=== PATIENT | male | born 1940 | race Two or more races ===

== ENCOUNTER 2022-05-31 08:00 | Day surgery (SDC) | payer OTHER ==
[~2022-05-31] VITALS: Ht 152.4 cm; Wt 59.9 kg
[~2022-05-31 08:00] MED LIST: COZAAR100 MG; COZAAR50 MG PO; JANUVIA100 MG PO; PEPCI PO; PROTONIX PO; SIMVASTA PO; XALATAN; [UNRECOGNIZED DRUG - OTHER]
[2022-05-31] MEDS ORDERED: ULTRACET PO (13:28)
[2022-05-31] MEDS ORDERED: RECTICARE30 GM TOP (13:28)
== END 2022-05-31 15:25 | disposition home or self-care (01) ==
LOC: CIR.AMB 08:00
PROVIDERS: ATTEND Surgery
DX: C20 Malignant neoplasm of rectum (principal); I10 Essential (primary) hypertension; Z95.0 Presence of cardiac pacemaker; E11.8 Type 2 diabetes mellitus with unspecified complications; Z91.041 Radiographic dye allergy status

== ENCOUNTER 2022-07-05 08:00 | Day surgery (SDC) | payer OTHER ==
[~2022-07-05 08:00] MED LIST changes: +RECTICARE30 GM TOP; +ULTRACET PO
[2022-07-05] MEDS ORDERED: TRAM1TAB98 PO (14:02)
== END 2022-07-05 16:55 | disposition home or self-care (01) ==
LOC: CIR.AMB 08:00
PROVIDERS: ATTEND Surgery
DX: C19 Malignant neoplasm of rectosigmoid junction (principal); Z91.041 Radiographic dye allergy status; I10 Essential (primary) hypertension; Z95.0 Presence of cardiac pacemaker; E11.9 Type 2 diabetes mellitus without complications; D64.89 Other specified anemias; Z79.84 Long term (current) use of oral hypoglycemic drugs
CPT/HCPCS: 36561; C1788

== ENCOUNTER 2023-08-22 05:10 | Day surgery (SDC) | payer OTHER ==
[~2023-08-22] VITALS: Ht 165.1 cm; Wt 59.9 kg
[~2023-08-22 05:10] MED LIST changes: +TRAM1TAB98 PO
[2023-08-22] MEDS ORDERED: CEFAZOLIN SODIUM 1,000 MG VIAL ONE (06:23)
[2023-08-22] MEDS ORDERED: BUPIVACAINE HCL/PF 0.5% 30ML ML ONE (07:16)
[2023-08-22] MEDS ORDERED: LIDOCAINE HCL 1%/Epi 20ML VIAL IJ ONE ×2 (07:16→08:00)
[2023-08-22] MEDS ORDERED: BUPIVACAINE HCL/PF 0.5% 30ML ML IJ ONE (07:45)
[2023-08-22] MEDS ORDERED: CEFAZOLIN SODIUM 1,000 MG in 0.9 % SODIUM CHLORIDE 50 ML IV ONE (07:45)
[2023-08-22] MEDS ORDERED: TRAM1TAB98 PO (08:15)
== END 2023-08-22 10:45 | disposition home or self-care (01) ==
LOC: CIR.AMB 05:10
PROVIDERS: ATTEND Surgery
DX: C20 Malignant neoplasm of rectum (principal); Z91.041 Radiographic dye allergy status; E11.9 Type 2 diabetes mellitus without complications; E78.5 Hyperlipidemia, unspecified

== ENCOUNTER 2024-02-28 11:00 | Inpatient (IN) | payer OTHER ==
[~2024-02-28] VITALS: Ht 167.6 cm; Wt 60.3 kg
[2024-02-28] MEDS ORDERED: XARELTO20 MG (13:12)
[2024-03-05] MEDS ORDERED: 0.9 % SODIUM CHLORIDE 1,000 ML IV SCH (15:45)
[2024-03-05] MEDS ORDERED: DEXTROSE 50 % IN WATER 0.5 G/ML DISP.SYRIN IV PRN (15:45)
[2024-03-05] MEDS ORDERED: MORPHINE SULFATE 4 MG/ML CARTRIDGE IV PRN (15:45)
[2024-03-05] MEDS ORDERED: ONDANSETRON HCL 2 MG/ML VIAL IV PRN (15:45)
[2024-03-05] MEDS ORDERED: OxyCODONE HCL 5 MG TABLET (ROXICODONE) PO PRN (15:45)
[2024-03-05] MEDS ORDERED: POVIDONE-IODINE 118 ML BOTT TOP SCH (16:15)
[2024-03-05] MEDS ORDERED: BUPIVACAINE HCL 30 ML VIAL IJ SCH (16:15)
[2024-03-05] MEDS ORDERED: CEFTRIAXONE SODIUM 2,000 MG VIAL IV SCH (16:15)
[2024-03-05] MEDS ORDERED: METRONIDAZOLE/SODIUM CHLORIDE 500 MG/100 ML PIGGYBACK IV SCH ×2 (16:15→17:00)
[2024-03-05] MEDS ORDERED: LIDOCAINE HCL 1%/EPINEPHRINE 20ML VIAL IJ SCH (16:15)
[2024-03-05] MEDS ORDERED: GABAPENTIN 300 MG CAPSULE PO SCH (17:00)
[2024-03-05] MEDS ORDERED: HYOSCYAMINE SULFATE 0.125 MG TAB.SUBL SL SCH (17:00)
[2024-03-05] MEDS ORDERED: POLYETHYLENE GLYCOL 3350 17 GM BLIST.PACK PO SCH (17:00)
[2024-03-05] MEDS ORDERED: ACETAMINOPHEN 500 MG GEL..CAP PO SCH (20:00)
[2024-03-05] MEDS ORDERED: MORPHINE SULFATE 4 MG/ML VIAL IV ONE ×2 (20:15→20:45)
[2024-03-05] MEDS ORDERED: FAMOTIDINE/PF 20 MG/2 ML VIAL IV PUSH SCH (21:00)
[2024-03-05] MEDS ORDERED: MORPHINE SULFATE 2 MG/ML CARTRIDGE IV ONE (22:45)
[2024-03-05 23:36] LABS: HEMATOCRIT 34.3 % (39.0-48.0); HEMOGLOBIN 11.5 g/dL (13-16.00); MEAN CORPUSCULAR HGB CONC 33.4 g/dl (32.0-36.0); RED BLOOD COUNT 3.95 M/uL (4.00-6.00); RED CELL DISTRIBUTION WIDTH 14.6 % (11.5-14.5)
[2024-03-05 23:37] LABS: PLATELET COUNT 120 K/uL (150-450)
[2024-03-05 23:47] LABS: ALBUMIN 3.6 gm/dL (3.4-5.0); CALCIUM 8.8 mg/dL (8.5-10.1); CREATININE SERUM 0.99 mg/dL (0.70-1.30); GFR 72.19; MAGNESIUM 1.5 mg/dL (1.8-2.4); PHOSPHOROUS 2.6 mg/dL (2.5-4.9); POTASSIUM 4.58 mEq/L (3.5-5.1)
[2024-03-06 04:27] VITALS: BP 118/64; O2SAT 98
[2024-03-06 07:30] VITALS: BP 156/86; O2SAT 97
[2024-03-06 07:49] LABS: HEMATOCRIT 30.2 % (39.0-48.0); HEMOGLOBIN 10.2 g/dL (13-16.00); MEAN CELL VOLUME 86.2 fL (80.0-100.00); MEAN CORPUSCULAR HEMOGLOBIN 29.2 pg (27.00-32.0); MEAN CORPUSCULAR HGB CONC 33.9 g/dl (32.0-36.0); RED CELL DISTRIBUTION WIDTH 14.4 % (11.5-14.5)
[2024-03-06 07:50] LABS: PLATELET COUNT 108 K/uL (150-450)
[2024-03-06 08:38] LABS: ALBUMIN 3.1 gm/dL (3.4-5.0); CALCIUM 8.8 mg/dL (8.5-10.1); CREATININE SERUM 1.02 mg/dL (0.70-1.30); GFR 69.75; MAGNESIUM 1.6 mg/dL (1.8-2.4); PHOSPHOROUS 2.8 mg/dL (2.5-4.9); POTASSIUM 5.03 mEq/L (3.5-5.1)
[2024-03-06 12:00] VITALS: BP 140/67; O2SAT 98
[2024-03-06] MEDS ORDERED: INSULIN LISPRO 1,000 UNIT/10 ML UNITS SUBCUTANEO PRN (12:45)
[2024-03-06] MEDS ORDERED: DEXTROSE 50 % IN WATER 0.5 G/ML DISP.SYRIN IV PRN (12:45)
[2024-03-06 16:00] VITALS: BP 137/61; O2SAT 97
[2024-03-06] MEDS ORDERED: MAGNESIUM SULFATE IN WATER 50 ML IV NR (16:00)
[2024-03-06] MEDS ORDERED: Cyanocobalamin/Mecobalamin 1 TAB.SL SL SCH (17:00)
[2024-03-06] MEDS ORDERED: ENOXAPARIN SODIUM 40 MG/0.4 ML SYRINGE SUBCUTANEO SCH (17:00)
[2024-03-06] MEDS ORDERED: TAMSULOSIN HCL 0.4 MG CAP PO STA (17:03)
[2024-03-07] VITALS: BP 143/65; O2SAT 94
[2024-03-07] MEDS ORDERED: LOSARTAN POTASSIUM 50 MG TABLET PO SCH (09:00)
[2024-03-07] MEDS ORDERED: SOD FERRIC GLUC COMPLX/SUCROSE 62.5 MG in 0.9 % SODIUM CHLORIDE 50 ML IV SCH (09:00)
[2024-03-07] MEDS ORDERED: ENOXAPARIN SODIUM 40 MG/0.4 ML SYRINGE SUBCUTANEO SCH (09:00)
[2024-03-07] MEDS ORDERED: TAMSULOSIN HCL 0.4 MG CAP PO STA (09:27)
[2024-03-07 09:51] VITALS: BP 158/72; O2SAT 100
[2024-03-07 16:00] VITALS: BP 127/61; O2SAT 98
[2024-03-07] MEDS ORDERED: TAMSULOSIN HCL 0.4 MG CAP PO SCH (21:00)
[2024-03-08 00:55] VITALS: BP 139/64; O2SAT 96
[2024-03-08 08:49] VITALS: BP 130/59; O2SAT 97
[2024-03-08] MEDS ORDERED: TAMSULOSIN HCL 0.4 MG CAP PO SCH (09:00)
[2024-03-08 10:08] LABS: HEMATOCRIT 32.1 % (39.0-48.0); HEMOGLOBIN 10.5 g/dL (13-16.00); MEAN CELL VOLUME 87.2 fL (80.0-100.00); MEAN CORPUSCULAR HEMOGLOBIN 28.5 pg (27.00-32.0); MEAN CORPUSCULAR HGB CONC 32.7 g/dl (32.0-36.0); RED BLOOD COUNT 3.68 M/uL (4.00-6.00); RED CELL DISTRIBUTION WIDTH 14.5 % (11.5-14.5)
[2024-03-08 10:09] LABS: PLATELET COUNT 107 K/uL (150-450)
[2024-03-08] MEDS ORDERED: TAMS0.4C PO (11:07)
[2024-03-08] MEDS ORDERED: HYOSCYAMINE0.125 M1 SL (11:07)
[2024-03-08] MEDS ORDERED: PEPCID AC20 MG PO (11:08)
[2024-03-08] MEDS ORDERED: TRAM1TAB98 PO (11:08)
== END 2024-03-08 12:24 | disposition home or self-care (01) | DRG 331 ==
LOC: O/R 03-05 06:38 → SURH 03-05 09:00 → SURG 03-05 22:45
PROVIDERS: Internal Medicine; ADMIT Surgery; ATTEND Surgery
PROC: 0DTP4ZZ Resection of Rectum, Percutaneous Endoscopic Approach (ICD-10-PCS; 2024-03-05)
PROC: 0DTQ4ZZ Resection of Anus, Percutaneous Endoscopic Approach (ICD-10-PCS; 2024-03-05)
PROC: 07BC4ZZ Excision of Pelvis Lymphatic, Percutaneous Endoscopic Approach (ICD-10-PCS; 2024-03-05)
PROC: 0D1E4Z4 Bypass Large Intestine to Cutaneous, Percutaneous Endoscopic Approach (ICD-10-PCS; 2024-03-05)
PROC: 0DTN4ZZ Resection of Sigmoid Colon, Percutaneous Endoscopic Approach (ICD-10-PCS; principal; 2024-03-05 09:00)
DX: C20 Malignant neoplasm of rectum (principal); K64.2 Third degree hemorrhoids; R59.0 Localized enlarged lymph nodes

== ENCOUNTER 2024-12-08 08:56 | Inpatient (IN) | payer OTHER ==
[~2024-12-08] VITALS: Ht 165.1 cm; Wt 55.3 kg
[~2024-12-08 08:56] MED LIST changes: +HYOSCYAMINE0.125 M1 SL; +PEPCID AC20 MG PO; +TAMS0.4C PO; +XARELTO20 MG
--- NOTE | 2024-12-08 09:19 | NUR ---
SE REICBE PTE EN AMBULANCIA POR DOLOR ABDOMINAL Y VOMITOS . PTE CON COLOCTOMIA Y MARACAPASO. SE LE CHERRIE S/VC Y SE LE REALIZA DXT. SE ACOMODA EN PATSY CON BARABDAS ELEVADA.
[2024-12-08] MEDS ORDERED: ONDANSETRON HCL 2 MG/ML VIAL IV ONE (09:45)
--- NOTE | 2024-12-08 10:25 | NUR ---
SE ORIENTA A PTE SOBRE TX MEDICO EL MISMO INDICA ENTENDER Y ACEPTAR, SE ABBY MUESTRAS DE LAB MAS SE ADMINISTRAN MEDICAMENTOS WOODY ORDEN MEDICA BAJO MEDIDAS ASEPTICAS.
[2024-12-08 10:28] LABS: BASO % 0.2 % (0.1-1.2); EOS # 0.00 (0.04-0.54); EOS % 0.0 % (0.7-7.0); LYMPH # 0.27 (1.18-3.74); LYMPH % 2.9 % (19.3-53.1); MEAN PLATELET VOLUME 9.30 fl (9.4-12.4); MONO # 0.87 (0.24-0.82); MONO % 9.2 % (4.7-12.5); NEUT # 8.16 (1.56-6.13); NEUT % 86.6 % (34.0-71.1); RED CELL DISTRIBUTION WIDTH 14.2 % (11.6-14.4)
[2024-12-08 10:56] LABS: ALT/SGPT 27.0 U/L (12-78); AST/SGOT 29.0 U/L (15-37); BILIRUBIN TOTAL 0.63 mg/dL (0.3-1.2); BUN CREA RATIO 14.0 (7.0-25.0); CREATININE SERUM 1.18 mg/dL (0.70-1.30); GFR 58.81; GLOBULINA 4.1 G/DL (2.4-3.5); GLUCOSE FASTING 150.0 mg/dL (65-100); OSMOLALITY SERUM 244.0 MOSM/KG (275-295)
[2024-12-08 11:06] LABS: COVID-19 AG NEGATIVE (NEGATIVE)
[2024-12-08 11:53] LABS: URINE APPEARANCE Cloudy; URINE BILIRRUBIN Negative (NEGATIVE); URINE BLOOD Large; URINE COLOR Yellow; URINE GLUCOSE Negative (NEGATIVE); URINE KETONE Negative (NEGATIVE); URINE LEUKOCYTE Large; URINE NITRATE Negative; URINE PROTEIN 30 (NEGATIVE); URINE UROBILINOGEN 0.2 E.U./dl
[2024-12-08 11:58] LABS: URINE CAST 1.76 uL (0.0-1.40); URINE RBC 46.5 uL (0.0-20.8); URINE WBC 1141.8 uL (0.0-23.2)
[2024-12-08 12:01] LABS: URINE BACTERIA > 9821.5 uL (0.0-1933); URINE EPITHELIAL CELLS 0.9 uL (0.0-38.8)
[2024-12-08] MEDS ORDERED: 0.9 % SODIUM CHLORIDE 1,000 ML IV SCH (14:15)
[2024-12-08] MEDS ORDERED: CEFTRIAXONE SODIUM 1,000 MG VIAL IV ONE (14:30)
[2024-12-08] MEDS ORDERED: ONDANSETRON HCL 4 MG in 0.9 % SODIUM CHLORIDE 50 ML IV PRN (16:00)
[2024-12-08] MEDS ORDERED: DEXTROSE 50 % IN WATER 0.5 G/ML DISP.SYRIN IV PRN (16:00)
[2024-12-08] MEDS ORDERED: INSULIN LISPRO 1,000 UNIT/10 ML UNITS SUBCUTANEO PRN (16:00)
--- NOTE | 2024-12-08 16:44 | NUR ---
SE COLOCA TUBO NASOGASTRICO WOODY ORDEN MEDICA.
[2024-12-08 16:48] VITALS: BP 135/80
[2024-12-08 18:21] VITALS: BP 121/69; O2SAT 99
[2024-12-08] MEDS ORDERED: ACETAMINOPHEN 325 MG TABLET PO PRN (20:00)
[2024-12-08] MEDS ORDERED: MORPHINE SULFATE 4 MG/ML CARTRIDGE IV PRN (20:00)
[2024-12-08] MEDS ORDERED: TEMAZEPAM 15 MG CAPSULE PO SCH (21:00)
[2024-12-09] MEDS ORDERED: PIPERACILLIN/TAZOBACTAM SODIUM 3.375 GM in 0.9 % SODIUM CHLORIDE 100 ML IV SCH
[2024-12-09 00:53] VITALS: BP 134/76; O2SAT 98
[2024-12-09 08:17] VITALS: BP 130/72; O2SAT 97
[2024-12-09 08:26] LABS: INR 1.14
[2024-12-09] MEDS ORDERED: FOLIC ACID 1 MG TABLET PO SCH (09:00)
[2024-12-09] MEDS ORDERED: LOSARTAN POTASSIUM 100 MG TABLET PO SCH (09:00)
[2024-12-09] MEDS ORDERED: RIVAROXABAN 20 MG TABLET PO SCH (09:00)
[2024-12-09] MEDS ORDERED: TAMSULOSIN HCL 0.4 MG CAP PO SCH (09:00)
[2024-12-09] MEDS ORDERED: METOPROLOL TARTRATE 5MG/5ML AMPUL IV NR (10:00)
[2024-12-09] MEDS ORDERED: PANTOPRAZOLE SODIUM 40 MG/VIAL VIAL IV SCH (12:00)
[2024-12-09 17:00] VITALS: BP 141/53; O2SAT 97
[2024-12-09] MEDS ORDERED: SIMVASTATIN 20 MG TABLET PO SCH (17:00)
[2024-12-10 00:45] VITALS: BP 147/71; O2SAT 96
[2024-12-10] MEDS ORDERED: MEROPENEM 500 MG/VIAL VIAL IV SCH (09:00)
[2024-12-10 09:08] VITALS: BP 138/56; O2SAT 99
[2024-12-10 10:09] LABS: BASO % 0.3 % (0.1-1.2); EOS # 0.02 (0.04-0.54); EOS % 0.2 % (0.7-7.0); LYMPH # 0.43 (1.18-3.74); LYMPH % 4.2 % (19.3-53.1); MEAN PLATELET VOLUME 9.10 fl (9.4-12.4); MONO # 1.07 (0.24-0.82); MONO % 10.5 % (4.7-12.5); NEUT # 8.47 (1.56-6.13); NEUT % 83.2 % (34.0-71.1); RED CELL DISTRIBUTION WIDTH 15.8 % (11.6-14.4)
[2024-12-10 16:00] VITALS: BP 144/61; O2SAT 96
[2024-12-11 01:40] VITALS: BP 151/67; O2SAT 98
[2024-12-11 08:00] VITALS: BP 149/78; O2SAT 98
[2024-12-11 17:14] VITALS: BP 132/67; O2SAT 99
[2024-12-12 01:20] VITALS: BP 144/67; O2SAT 97
[2024-12-12 08:00] VITALS: BP 145/80; O2SAT 97
[2024-12-12] MEDS ORDERED: RIVAROXABAN 15 MG TABLET PO SCH (09:00)
[2024-12-12 09:22] LABS: ALT/SGPT 22.0 U/L (12-78); AST/SGOT 18.0 U/L (15-37); BILIRUBIN TOTAL 0.3 mg/dL (0.3-1.2); BUN CREA RATIO 10.0 (7.0-25.0); CREATININE SERUM 0.67 mg/dL (0.70-1.30); GFR 113.01; GLOBULINA 3.2 G/DL (2.4-3.5); GLUCOSE FASTING 102.0 mg/dL (65-100); OSMOLALITY SERUM 279.0 MOSM/KG (275-295)
[2024-12-12 16:00] VITALS: BP 147/66; O2SAT 98
[2024-12-12] MEDS ORDERED: CLONAZEPAM 0.5 MG TABLET PO SCH (21:00)
[2024-12-13 01:34] VITALS: BP 129/65; O2SAT 99
[2024-12-13 01:36] LABS: URINE APPEARANCE Clear; URINE BILIRRUBIN Negative (NEGATIVE); URINE BLOOD Large; URINE COLOR Orange; URINE KETONE Negative (NEGATIVE); URINE LEUKOCYTE Moderate; URINE NITRATE Negative; URINE UROBILINOGEN 0.2 E.U./dl
[2024-12-13 01:39] LABS: URINE BACTERIA 148.7 uL (0.0-1933); URINE EPITHELIAL CELLS 2.6 uL (0.0-38.8); URINE RBC 5885.4 uL (0.0-20.8); URINE WBC 63.2 uL (0.0-23.2)
[2024-12-13 01:49] LABS: URINE CAST 0.29 uL (0.0-1.40); URINE GLUCOSE 100 MG/DL (NEGATIVE); URINE PROTEIN 100 (NEGATIVE)
[2024-12-13 08:43] VITALS: BP 137/83; O2SAT 96
[2024-12-13] MEDS ORDERED: PANTOPRAZOLE SODIUM 40 MG TABLET.DR PO SCH (09:00)
[2024-12-13 16:00] VITALS: BP 129/72; O2SAT 97
[2024-12-14 00:52] VITALS: BP 146/68; O2SAT 98
[2024-12-14] MEDS ORDERED: INSULIN NPH HUM/REG INSULIN HM 1,000 UNIT/10 ML UNITS SUBCUTANEO SCH (08:00)
[2024-12-14 08:36] VITALS: BP 117/62; O2SAT 98
[2024-12-14 17:53] VITALS: BP 114/78; O2SAT 99
[2024-12-15 02:02] VITALS: BP 97/62; O2SAT 98
[2024-12-15 08:10] LABS: BASO % 0.3 % (0.1-1.2); EOS # 0.10 (0.04-0.54); EOS % 1.7 % (0.7-7.0); LYMPH # 0.82 (1.18-3.74); LYMPH % 14.2 % (19.3-53.1); MEAN PLATELET VOLUME 9.20 fl (9.4-12.4); MONO # 0.40 (0.24-0.82); MONO % 6.9 % (4.7-12.5); NEUT # 4.40 (1.56-6.13); NEUT % 76.0 % (34.0-71.1); RED CELL DISTRIBUTION WIDTH 16.4 % (11.6-14.4)
[2024-12-15 08:21] LABS: BUN CREA RATIO 16.0 (7.0-25.0); CREATININE SERUM 0.82 mg/dL (0.70-1.30); GFR 89.51; GLUCOSE FASTING 105.0 mg/dL (65-100); OSMOLALITY SERUM 280.0 MOSM/KG (275-295)
[2024-12-15 08:26] VITALS: BP 109/66; O2SAT 98
[2024-12-15] MEDS ORDERED: POTASSIUM CHLORIDE 10 MEQ CAPSULE PO NR (10:00)
[2024-12-15 16:00] VITALS: BP 104/66; O2SAT 100
[2024-12-15] MEDS ORDERED: DOCUSATE SODIUM 100MG CAP PO SCH (17:00)
[2024-12-16 01:27] VITALS: BP 128/73; O2SAT 98
[2024-12-16 13:47] VITALS: BP 120/76; O2SAT 98
[2024-12-16 16:00] VITALS: BP 102/60; O2SAT 97
[2024-12-16] MEDS ORDERED: POTASSIUM CHLORIDE 10 MEQ CAPSULE PO NR (16:00)
[2024-12-16] MEDS ORDERED: MINERAL OIL 30 ML BLIST.PACK PO ONE (17:00)
[2024-12-16] MEDS ORDERED: LACTULOSE 20 G/30 ML BLIST.PACK PO SCH (17:00)
[2024-12-17] VITALS: BP 154/74; O2SAT 96
[2024-12-17 07:21] LABS: BUN CREA RATIO 21.0 (7.0-25.0); CREATININE SERUM 0.67 mg/dL (0.70-1.30); GFR 113.01; GLUCOSE FASTING 95.0 mg/dL (65-100); OSMOLALITY SERUM 278.0 MOSM/KG (275-295)
[2024-12-17] MEDS ORDERED: INSULIN NPH HUM/REG INSULIN HM 1,000 UNIT/10 ML UNITS SUBCUTANEO SCH (08:00)
[2024-12-17 09:19] VITALS: BP 125/70; O2SAT 97
== END 2024-12-17 10:27 | disposition home or self-care (01) | DRG 389 ==
LOC: ER 08:56 → SURH 16:55
PROVIDERS: Emergency Medicine; General Practice; Internal Medicine; Internal Medicine Infectious Disease; ADMIT Internal Medicine; ATTEND Internal Medicine
PROC: BW21ZZZ Computerized Tomography (CT Scan) of Abdomen and Pelvis (ICD-10-PCS; 2024-12-08)
PROC: 0D9670Z Drainage of Stomach with Drainage Device, Via Natural or Artificial Opening (ICD-10-PCS; principal; 2024-12-09)
PROC: 8E0ZXY6 Isolation (ICD-10-PCS; 2024-12-10)
PROC: B54DZZZ Ultrasonography of Bilateral Lower Extremity Veins (ICD-10-PCS; 2024-12-13)
DX: K56.600 Partial intestinal obstruction, unspecified as to cause (principal); C19 Malignant neoplasm of rectosigmoid junction; N39.0 Urinary tract infection, site not specified; E11.65 Type 2 diabetes mellitus with hyperglycemia; R60.0 Localized edema; K59.00 Constipation, unspecified; Z79.84 Long term (current) use of oral hypoglycemic drugs; B96.1 Klebsiella pneumoniae [K. pneumoniae] as the cause of diseases classified elsewhere; Z92.21 Personal history of antineoplastic chemotherapy; Z93.3 Colostomy status

== ENCOUNTER 2024-12-21 17:18 | Emergency (ER) | payer OTHER ==
[~2024-12-21] VITALS: Ht 165.1 cm; Wt 55.3 kg
[2024-12-21] MEDS ORDERED: 0.9 % SODIUM CHLORIDE 250 ML IV SCH (19:30)
[2024-12-21 19:55] LABS: BASO % 0.3 % (0.1-1.2); EOS # 0.04 (0.04-0.54); EOS % 0.6 % (0.7-7.0); LYMPH # 0.57 (1.18-3.74); LYMPH % 8.3 % (19.3-53.1); MEAN PLATELET VOLUME 9.10 fl (9.4-12.4); MONO # 0.64 (0.24-0.82); MONO % 9.3 % (4.7-12.5); NEUT # 5.60 (1.56-6.13); NEUT % 81.1 % (34.0-71.1); RED CELL DISTRIBUTION WIDTH 16.6 % (11.6-14.4)
[2024-12-21 20:16] LABS: ALT/SGPT 18.0 U/L (12-78); AST/SGOT 24.0 U/L (15-37); BILIRUBIN TOTAL 0.46 mg/dL (0.3-1.2); BUN CREA RATIO 13.0 (7.0-25.0); CREATININE SERUM 0.79 mg/dL (0.70-1.30); GFR 93.44; GLOBULINA 3.3 G/DL (2.4-3.5); GLUCOSE FASTING 110.0 mg/dL (65-100); OSMOLALITY SERUM 264.0 MOSM/KG (275-295)
[2024-12-21 20:21] LABS: URINE APPEARANCE Clear; URINE BILIRRUBIN Negative (NEGATIVE); URINE BLOOD Large; URINE COLOR Yellow; URINE GLUCOSE Negative (NEGATIVE); URINE KETONE Negative (NEGATIVE); URINE LEUKOCYTE Small; URINE NITRATE Negative; URINE PROTEIN 30 (NEGATIVE); URINE UROBILINOGEN 0.2 E.U./dl
[2024-12-21 20:24] LABS: URINE BACTERIA 94.7 uL (0.0-1933); URINE EPITHELIAL CELLS 3.5 uL (0.0-38.8); URINE RBC 1637.5 uL (0.0-20.8); URINE WBC 36.8 uL (0.0-23.2)
[2024-12-21 20:34] LABS: URINE CAST 0.00 uL (0.0-1.40)
== END 2024-12-21 23:32 | disposition home or self-care (01) ==
LOC: ER 17:18
PROVIDERS: Emergency Medicine
DX: K29.70 Gastritis, unspecified, without bleeding (principal); R31.9 Hematuria, unspecified; E11.9 Type 2 diabetes mellitus without complications; Z79.84 Long term (current) use of oral hypoglycemic drugs; N40.0 Benign prostatic hyperplasia without lower urinary tract symptoms; Z88.8 Allergy status to other drugs, medicaments and biological substances
CPT/HCPCS: 36415; 96365; 99283; J3490

== ENCOUNTER 2024-12-29 19:48 | Inpatient (IN) | payer OTHER ==
[~2024-12-29] VITALS: Ht 165.1 cm; Wt 55.3 kg
[2024-12-29] MEDS ORDERED: ZOFRAN8 MG PO (20:11)
[2024-12-29] MEDS ORDERED: 0.9 % SODIUM CHLORIDE 1,000 ML IV ONE (21:00)
[2024-12-29] MEDS ORDERED: FAMOtidine 10 MG/ML (4ML VIAL) IV ONE (21:00)
[2024-12-29] MEDS ORDERED: ONDANSETRON HCL 2 MG/ML VIAL IV ONE (21:00)
[2024-12-29] MEDS ORDERED: ONDANSETRON HCL 2 MG/ML VIAL ONE (21:16)
[2024-12-29] MEDS ORDERED: FAMOTIDINE/PF 20 MG/2 ML VIAL ONE ×2 (21:16)
[2024-12-29] MEDS ORDERED: BARIUM SULFATE 450 ML ORAL.SUSP PO ONE (21:17)
[2024-12-29 22:01] LABS: BASO % 0.3 % (0.1-1.2); EOS # 0.00 (0.04-0.54); EOS % 0.0 % (0.7-7.0); LYMPH # 0.20 (1.18-3.74); LYMPH % 2.5 % (19.3-53.1); MEAN PLATELET VOLUME 9.60 fl (9.4-12.4); MONO # 0.49 (0.24-0.82); MONO % 6.1 % (4.7-12.5); NEUT # 7.23 (1.56-6.13); NEUT % 90.7 % (34.0-71.1); RED CELL DISTRIBUTION WIDTH 15.5 % (11.6-14.4)
[2024-12-29 22:26] LABS: INR 1.16
[2024-12-29 22:37] LABS: ALT/SGPT 22.0 U/L (12-78); AST/SGOT 22.0 U/L (15-37); BILIRUBIN TOTAL 0.5 mg/dL (0.3-1.2); BUN CREA RATIO 15.0 (7.0-25.0); CREATININE SERUM 0.98 mg/dL (0.70-1.30); GFR 72.87; GLOBULINA 3.3 G/DL (2.4-3.5); GLUCOSE FASTING 134.0 mg/dL (65-100); OSMOLALITY SERUM 262.0 MOSM/KG (275-295)
[2024-12-29 23:51] LABS: URINE APPEARANCE Clear; URINE BILIRRUBIN Negative (NEGATIVE); URINE BLOOD Large; URINE COLOR Red; URINE GLUCOSE Negative (NEGATIVE); URINE KETONE 15 (NEGATIVE); URINE LEUKOCYTE Moderate; URINE NITRATE Negative; URINE UROBILINOGEN 0.2 E.U./dl
[2024-12-29 23:52] LABS: URINE BACTERIA 188.3 uL (0.0-1933); URINE EPITHELIAL CELLS 7.0 uL (0.0-38.8); URINE RBC 5000.2 uL (0.0-20.8); URINE WBC 102.2 uL (0.0-23.2)
[2024-12-30] LABS: URINE CAST 0.73 uL (0.0-1.40); URINE PROTEIN 300 (NEGATIVE)
[2024-12-30] MEDS ORDERED: LIDOCAINE HCL 2% JELLY 6 ML SYRINGE MM ONE (03:56)
[2024-12-30] MEDS ORDERED: ONDANSETRON HCL 2 MG/ML VIAL IV PRN (14:30)
[2024-12-30] MEDS ORDERED: RINGERS SOLUTION,LACTATED 1,000 ML IV SCH (14:30)
[2024-12-30] MEDS ORDERED: MORPHINE SULFATE 4 MG/ML VIAL IV PRN (14:30)
[2024-12-30 15:36] VITALS: BP 134/62
[2024-12-30 18:00] VITALS: BP 167/76; O2SAT 98
[2024-12-30] MEDS ORDERED: FAMOTIDINE/PF 20 MG/2 ML VIAL IV SCH (21:00)
[2024-12-31 00:49] VITALS: BP 151/68; O2SAT 97
[2024-12-31 06:58] LABS: BASO % 0.3 % (0.1-1.2); EOS # 0.01 (0.04-0.54); EOS % 0.1 % (0.7-7.0); LYMPH # 0.38 (1.18-3.74); LYMPH % 5.5 % (19.3-53.1); MEAN PLATELET VOLUME 10.10 fl (9.4-12.4); MONO # 0.69 (0.24-0.82); MONO % 9.9 % (4.7-12.5); NEUT # 5.82 (1.56-6.13); NEUT % 83.5 % (34.0-71.1); RED CELL DISTRIBUTION WIDTH 15.9 % (11.6-14.4)
[2024-12-31 07:22] LABS: BUN CREA RATIO 10.0 (7.0-25.0); CREATININE SERUM 2.12 mg/dL (0.70-1.30); GFR 29.91; GLUCOSE FASTING 61.0 mg/dL (65-100); OSMOLALITY SERUM 271.0 MOSM/KG (275-295)
[2024-12-31 08:00] VITALS: BP 150/74; O2SAT 97
[2024-12-31 17:01] VITALS: BP 156/78; O2SAT 96
[2025-01-01 00:47] VITALS: BP 155/76; O2SAT 100
[2025-01-01] MEDS ORDERED: hydrALAZINE HCL 20 MG VIAL IV PRN (06:45)
[2025-01-01] MEDS ORDERED: 0.9 % SODIUM CHLORIDE 1,000 ML IV SCH (06:45)
[2025-01-01 08:00] VITALS: BP 148/75; O2SAT 98
[2025-01-01 13:41] LABS: BUN CREA RATIO 8.0 (7.0-25.0); GFR 13.15; GLUCOSE FASTING 135.0 mg/dL (65-100); OSMOLALITY SERUM 273.0 MOSM/KG (275-295)
[2025-01-01 14:08] LABS: CREATININE SERUM 4.32 mg/dL (0.70-1.30)
[2025-01-01 15:30] VITALS: BP 120/50; O2SAT 97
[2025-01-01] MEDS ORDERED: INSULIN LISPRO 1,000 UNIT/10 ML UNITS SUBCUTANEO PRN (16:15)
[2025-01-01] MEDS ORDERED: DEXTROSE 50 % IN WATER 0.5 G/ML VIAL IV PRN (16:15)
[2025-01-01] MEDS ORDERED: ACETAMINOPHEN 500 MG GEL..CAP PO PRN (19:00)
[2025-01-01] MEDS ORDERED: MORPHINE SULFATE 2 MG/ML SYRINGE IV ONE (20:30)
[2025-01-02] VITALS (10 sets, daily range): BP systolic 81–115; BP diastolic 46–73; O2SAT 93–100
[2025-01-02 07:05] LABS: BASO % 0.1 % (0.1-1.2); EOS # 0.02 (0.04-0.54); EOS % 0.2 % (0.7-7.0); LYMPH # 0.14 (1.18-3.74); LYMPH % 1.6 % (19.3-53.1); MEAN PLATELET VOLUME 11.80 fl (9.4-12.4); MONO # 0.12 (0.24-0.82); MONO % 1.4 % (4.7-12.5); NEUT # 8.34 (1.56-6.13); NEUT % 94.3 % (34.0-71.1); RED CELL DISTRIBUTION WIDTH 15.6 % (11.6-14.4)
[2025-01-02 07:26] LABS: BAND MAN 12.0 %; LYMPHOCYTE MAN 2.0 %; METAMYELOCYTE 7.0 %; MONOCYTE MAN 12.0 %; NEUTROPHILS MAN 67.0 %
[2025-01-02 08:00] LABS: GLUCOSE FASTING 81.0 mg/dL (65-100); OSMOLALITY SERUM 267.0 MOSM/KG (275-295)
[2025-01-02 08:15] LABS: BUN CREA RATIO 8.0 (7.0-25.0); GFR 10.96
[2025-01-02 08:17] LABS: CREATININE SERUM 5.06 mg/dL (0.70-1.30)
[2025-01-02] MEDS ORDERED: MAGNESIUM SULFATE IN WATER 2 GM/50 ML PIGGYBAG IV NR (09:00)
[2025-01-02] MEDS ORDERED: MEROPENEM 500 MG/VIAL VIAL IV NR (10:50)
[2025-01-02] MEDS ORDERED: NOREPINEPHRINE BITARTRATE 8 MG in DEXTROSE 5 % IN WATER 250 ML IV SCH (11:30)
[2025-01-02 14:28] LABS: ABG PH 7.291 (7.35-7.45); ABG PO2 113.6 mmHg (80-100); BICARBONATE 8.9 mmol/l (23-25)
[2025-01-02 14:31] LABS: o2 32 %
[2025-01-02] MEDS ORDERED: VANCOMYCIN HCL 500 MG in 0.9 % SODIUM CHLORIDE 100 ML IV NR (15:00)
[2025-01-02 19:11] LABS: URINE APPEARANCE Turbid; URINE BILIRRUBIN Negative (NEGATIVE); URINE BLOOD Large; URINE COLOR Dark Yellow; URINE GLUCOSE Negative (NEGATIVE); URINE KETONE Trace (NEGATIVE); URINE LEUKOCYTE Large; URINE NITRATE Negative; URINE UROBILINOGEN 1.0 E.U./dl
[2025-01-02 19:12] LABS: URINE BACTERIA 6790.8 uL (0.0-1933); URINE CAST 4.10 uL (0.0-1.40); URINE EPITHELIAL CELLS 84.9 uL (0.0-38.8); URINE RBC 2815.2 uL (0.0-20.8); URINE WBC 1073.5 uL (0.0-23.2)
[2025-01-02 19:34] LABS: URINE PROTEIN 100 (NEGATIVE)
[2025-01-02 19:35] LABS: URINE CRYSTALS FEW /HPF
[2025-01-02 19:37] LABS: URINE MUCUS SCANT; URINE YEAST FEW /hpf
[2025-01-02 19:38] LABS: TYPE CELLS SQUAMOUS
[2025-01-02] MEDS ORDERED: MEROPENEM 500 MG/VIAL VIAL IV SCH (21:00)
[2025-01-03] VITALS (24 sets, daily range): BP systolic 72–130; BP diastolic 30–86; O2SAT 98–100
[2025-01-03 09:10] LABS: ALT/SGPT 118.0 U/L (12-78); AST/SGOT 175.0 U/L (15-37); BILIRUBIN TOTAL 0.85 mg/dL (0.3-1.2); GLOBULINA 3.0 G/DL (2.4-3.5); GLUCOSE FASTING 58.0 mg/dL (65-100); OSMOLALITY SERUM 266.0 MOSM/KG (275-295)
[2025-01-03 09:11] LABS: BUN CREA RATIO 13.0 (7.0-25.0); CREATININE SERUM 3.92 mg/dL (0.70-1.30); GFR 14.71
[2025-01-03 10:18] LABS: BASO % 0.2 % (0.1-1.2); EOS # 0.01 (0.04-0.54); EOS % 0.0 % (0.7-7.0); LYMPH # 0.44 (1.18-3.74); LYMPH % 2.0 % (19.3-53.1); MONO # 0.55 (0.24-0.82); MONO % 2.5 % (4.7-12.5); NEUT # 16.99 (1.56-6.13); NEUT % 78.9 % (34.0-71.1); RED CELL DISTRIBUTION WIDTH 15.7 % (11.6-14.4)
[2025-01-03 10:48] LABS: CORTISOL 31.22 ug/dl
[2025-01-03] MEDS ORDERED: CHLORHEXIDINE GLUCONATE 120 ML BOTTLE TOP ONE (10:53)
[2025-01-03] MEDS ORDERED: BENZONATATE 100 MG CAPSULE PO SCH (18:01)
[2025-01-03] MEDS ORDERED: LORATADINE 10 MG TABLET PO SCH (21:00)
[2025-01-03] MEDS ORDERED: GUAIFENESIN 200 MG/10 ML BLIST.PACK PO SCH (21:00)
[2025-01-04] VITALS (23 sets, daily range): BP systolic 85–149; BP diastolic 31–87; O2SAT 96–100
[2025-01-04] MEDS ORDERED: DEXTROSE 5%-WATER 250ML IV.SOLN ONE (00:11)
[2025-01-04] MEDS ORDERED: LEVALBUTEROL HCL 0.63 MG/3 ML SOLUTION IH SCH (05:23)
[2025-01-04] MEDS ORDERED: CODEINE PHOSPHATE/GUAIFENESIN 5 ML ML PO PRN (05:30)
[2025-01-04 07:44] LABS: URINE APPEARANCE Clear; URINE BILIRRUBIN Negative (NEGATIVE); URINE BLOOD Large; URINE COLOR Yellow; URINE GLUCOSE Negative (NEGATIVE); URINE KETONE Negative (NEGATIVE); URINE LEUKOCYTE Moderate; URINE NITRATE Negative; URINE PROTEIN 30 (NEGATIVE); URINE UROBILINOGEN 0.2 E.U./dl
[2025-01-04 07:53] LABS: URINE BACTERIA 148.7 uL (0.0-1933); URINE EPITHELIAL CELLS 7.9 uL (0.0-38.8); URINE RBC 356.0 uL (0.0-20.8); URINE WBC 53.8 uL (0.0-23.2)
[2025-01-04 08:17] LABS: ALT/SGPT 115.0 U/L (12-78); AST/SGOT 110.0 U/L (15-37); BILIRUBIN TOTAL 0.58 mg/dL (0.3-1.2); BUN CREA RATIO 21.0 (7.0-25.0); CREATININE SERUM 2.72 mg/dL (0.70-1.30); GFR 22.43; GLOBULINA 2.4 G/DL (2.4-3.5); GLUCOSE FASTING 80.0 mg/dL (65-100); OSMOLALITY SERUM 272.0 MOSM/KG (275-295); PROSTATIC SPECIFIC ANTIGEN 1.23 NG/ML (0.010-4.00)
[2025-01-04 08:26] LABS: BASO % 0.0 % (0.1-1.2); EOS # 0.03 (0.04-0.54); EOS % 0.1 % (0.7-7.0); LYMPH # 0.43 (1.18-3.74); LYMPH % 1.4 % (19.3-53.1); MONO # 0.63 (0.24-0.82); MONO % 2.0 % (4.7-12.5); NEUT # 29.84 (1.56-6.13); NEUT % 95.5 % (34.0-71.1); RED CELL DISTRIBUTION WIDTH 15.9 % (11.6-14.4)
[2025-01-04 09:09] LABS: URINE CAST 0.00 uL (0.0-1.40); URINE YEAST FEW /hpf
[2025-01-04 10:35] LABS: BAND MAN 20.0 %; NEUTROPHILS MAN 74.0 %
[2025-01-04 10:36] LABS: MONOCYTE MAN 3.0 %
[2025-01-04] MEDS ORDERED: MIDODRINE HCL 5 MG TABLET PO SCH (13:21)
[2025-01-04] MEDS ORDERED: HYDROCORTISONE SODIUM SUCC/PF 100 MG VIAL IV STA (14:25)
[2025-01-04] MEDS ORDERED: AA 4.25%/CAL/LYTES/DEXT 5% 1,000 ML PERIFERAL SCH (17:00)
[2025-01-04] MEDS ORDERED: AMIKACIN SULFATE 250 MG/ML (500MG) VIAL IV NR (17:30)
[2025-01-04] MEDS ORDERED: HYDROCORTISONE SODIUM SUCC/PF 50 MG/ML ML IV SCH (18:00)
[2025-01-04] MEDS ORDERED: PANTOPRAZOLE SODIUM 40 MG/VIAL VIAL IV SCH (21:00)
[2025-01-05] VITALS (18 sets, daily range): BP systolic 81–157; BP diastolic 39–851; O2SAT 97–100
[2025-01-05 06:37] LABS: BASO % 0.3 % (0.1-1.2); EOS # 0.00 (0.04-0.54); EOS % 0.0 % (0.7-7.0); LYMPH # 0.28 (1.18-3.74); LYMPH % 0.7 % (19.3-53.1); MEAN PLATELET VOLUME 11.60 fl (9.4-12.4); MONO # 1.13 (0.24-0.82); MONO % 2.7 % (4.7-12.5); NEUT # 36.61 (1.56-6.13); NEUT % 86.4 % (34.0-71.1); RED CELL DISTRIBUTION WIDTH 16.2 % (11.6-14.4)
[2025-01-05 07:31] LABS: BASO % 0.0 % (0.1-1.2); EOS # 0.00 (0.04-0.54); EOS % 0.0 % (0.7-7.0); LYMPH # 0.30 (1.18-3.74); LYMPH % 0.7 % (19.3-53.1); MEAN PLATELET VOLUME 12.00 fl (9.4-12.4); MONO # 1.63 (0.24-0.82); MONO % 3.8 % (4.7-12.5); NEUT # 35.65 (1.56-6.13); NEUT % 83.2 % (34.0-71.1); RED CELL DISTRIBUTION WIDTH 15.7 % (11.6-14.4)
[2025-01-05 07:47] LABS: ALT/SGPT 94.0 U/L (12-78); AST/SGOT 55.0 U/L (15-37); BILIRUBIN TOTAL 0.6 mg/dL (0.3-1.2); BUN CREA RATIO 24.0 (7.0-25.0); CREATININE SERUM 2.9 mg/dL (0.70-1.30); GFR 20.84; GLOBULINA 2.6 G/DL (2.4-3.5); GLUCOSE FASTING 185.0 mg/dL (65-100); OSMOLALITY SERUM 281.0 MOSM/KG (275-295)
[2025-01-05 11:05] LABS: ABG PH 7.298 (7.35-7.45); ABG PO2 101.4 mmHg (80-100); BICARBONATE 15.8 mmol/l (23-25); o2 32 %
[2025-01-06] VITALS (11 sets, daily range): BP systolic 113–130; BP diastolic 35–73; O2SAT 96–100
[2025-01-06 08:21] LABS: ALT/SGPT 69.0 U/L (12-78); AST/SGOT 37.0 U/L (15-37); BILIRUBIN TOTAL 0.5 mg/dL (0.3-1.2); BUN CREA RATIO 23.0 (7.0-25.0); CREATININE SERUM 3.84 mg/dL (0.70-1.30); GFR 15.07; GLOBULINA 2.8 G/DL (2.4-3.5)
[2025-01-06 08:22] LABS: OSMOLALITY SERUM 290.0 MOSM/KG (275-295)
[2025-01-06 08:23] LABS: GLUCOSE FASTING 209.0 mg/dL (65-100)
[2025-01-06 08:50] LABS: ABG PH 7.279 (7.35-7.45); ABG PO2 162.8 mmHg (80-100); BICARBONATE 16.4 mmol/l (23-25)
[2025-01-06 08:58] LABS: BASO % 0.3 % (0.1-1.2); EOS # 0.00 (0.04-0.54); EOS % 0.0 % (0.7-7.0); LYMPH # 0.26 (1.18-3.74); LYMPH % 0.6 % (19.3-53.1); MONO # 1.68 (0.24-0.82); MONO % 3.9 % (4.7-12.5); NEUT # 34.60 (1.56-6.13); NEUT % 79.6 % (34.0-71.1); RED CELL DISTRIBUTION WIDTH 16.0 % (11.6-14.4)
[2025-01-06 09:18] LABS: o2 50 %
[2025-01-06 10:28] LABS: BAND MAN 37.0 %; MONOCYTE MAN 4.0 %; NEUTROPHILS MAN 59.0 %
[2025-01-06] MEDS ORDERED: FLUCONAZOLE IN NACL,ISO-OSM 400 MG/200 ML PIGGYBAG IV NR (14:45)
[2025-01-06] MEDS ORDERED: HYDROCORTISONE SODIUM SUCC/PF 50 MG/ML ML IV SCH (17:00)
[2025-01-07] VITALS (8 sets, daily range): BP systolic 107–129; BP diastolic 54–62; O2SAT 85–100
[2025-01-07 07:13] LABS: BASO % 0.2 % (0.1-1.2); EOS # 0.00 (0.04-0.54); EOS % 0.0 % (0.7-7.0); LYMPH # 0.20 (1.18-3.74); LYMPH % 0.5 % (19.3-53.1); MONO # 1.17 (0.24-0.82); MONO % 3.0 % (4.7-12.5); NEUT # 36.22 (1.56-6.13); NEUT % 92.6 % (34.0-71.1); RED CELL DISTRIBUTION WIDTH 15.9 % (11.6-14.4)
[2025-01-07 07:57] LABS: INR 1.14
[2025-01-07 08:05] LABS: BAND MAN 13.0 %; MONOCYTE MAN 2.0 %; NEUTROPHILS MAN 85.0 %
[2025-01-07 08:33] LABS: ALT/SGPT 48.0 U/L (12-78); AST/SGOT 26.0 U/L (15-37); BILIRUBIN TOTAL 0.44 mg/dL (0.3-1.2); BILIRUBIN,CONJUGATED 0.2 mg/dL (0.0-0.2); GLOBULINA 2.7 G/DL (2.4-3.5)
[2025-01-07] MEDS ORDERED: FLUCONAZOLE IN NACL,ISO-OSM 100 ML IV SCH (09:00)
[2025-01-07 09:04] LABS: GLUCOSE FASTING 212.0 mg/dL (65-100); OSMOLALITY SERUM 300.0 MOSM/KG (275-295)
[2025-01-07 09:05] LABS: BUN CREA RATIO 27.0 (7.0-25.0); GFR 13.26
[2025-01-07 09:07] LABS: CREATININE SERUM 4.29 mg/dL (0.70-1.30)
[2025-01-07 09:10] LABS: UREA CLEARANCE 0.3 ML/MIN
[2025-01-07] MEDS ORDERED: ANIDULAFUNGIN 100 MG VIAL IV NR (10:00)
[2025-01-07] MEDS ORDERED: CALCIUM GLUCONATE 100 MG/ML VIAL IV NR (10:00)
[2025-01-07 10:23] LABS: ABG PH 7.330 (7.35-7.45); ABG PO2 152.5 mmHg (80-100)
[2025-01-07 10:24] LABS: BICARBONATE 15.4 mmol/l (23-25)
[2025-01-07 10:26] LABS: o2 50 %
[2025-01-07] MEDS ORDERED: AMINO ACIDS 4.25%/DEXTROSE 10% 1,000 ML CENTRAL SCH (17:00)
[2025-01-08] VITALS (8 sets, daily range): BP systolic 96–136; BP diastolic 42–67; O2SAT 96–100
[2025-01-08 06:13] LABS: BASO % 0.3 % (0.1-1.2); EOS # 0.00 (0.04-0.54); EOS % 0.0 % (0.7-7.0); LYMPH # 0.22 (1.18-3.74); LYMPH % 0.6 % (19.3-53.1); MONO # 1.02 (0.24-0.82); MONO % 2.9 % (4.7-12.5); NEUT # 32.40 (1.56-6.13); NEUT % 91.2 % (34.0-71.1); RED CELL DISTRIBUTION WIDTH 15.9 % (11.6-14.4)
[2025-01-08 07:02] LABS: ALT/SGPT 34.0 U/L (12-78); AST/SGOT 24.0 U/L (15-37); BILIRUBIN TOTAL 0.47 mg/dL (0.3-1.2); GLOBULINA 2.6 G/DL (2.4-3.5); GLUCOSE FASTING 198.0 mg/dL (65-100)
[2025-01-08 07:03] LABS: BAND MAN 4.0 %; LYMPHOCYTE MAN 3.0 %; MONOCYTE MAN 1.0 %; NEUTROPHILS MAN 92.0 %
[2025-01-08 07:14] LABS: BUN CREA RATIO 28.0 (7.0-25.0); GFR 11.99; OSMOLALITY SERUM 302.0 MOSM/KG (275-295)
[2025-01-08 07:16] LABS: CREATININE SERUM 4.68 mg/dL (0.70-1.30)
[2025-01-08] MEDS ORDERED: ANIDULAFUNGIN 100 MG VIAL IV SCH (09:00)
[2025-01-08 10:13] LABS: ABG PH 7.266 (7.35-7.45); ABG PO2 143.7 mmHg (80-100)
[2025-01-08 10:15] LABS: BICARBONATE 13.9 mmol/l (23-25)
[2025-01-08 10:16] LABS: o2 50 %
[2025-01-08] MEDS ORDERED: FLUCONAZOLE IN NACL,ISO-OSM 400 MG/200 ML PIGGYBAG IV NR (17:00)
[2025-01-09] VITALS (11 sets, daily range): BP systolic 35–129; BP diastolic 20–49; O2SAT 87–100
[2025-01-09] MEDS ORDERED: SODIUM BICARBONATE 50MEQ/50ML VIAL IV NR (09:00)
[2025-01-09 11:21] LABS: ABG PH 6.990 (7.35-7.45); ABG PO2 130.9 mmHg (80-100)
[2025-01-09 11:22] LABS: BICARBONATE 19.4 mmol/l (23-25)
[2025-01-09 11:24] LABS: o2 50 %
[2025-01-09] MEDS ORDERED: FLUCONAZOLE IN NACL,ISO-OSM 200 MG/100 ML PIGGYBAG IV SCH (17:00)
== END 2025-01-09 15:10 | disposition expired | DRG 393 ==
LOC: ER 21:01 → SURG 12-30 14:47 → ICU 01-02 18:37
PROVIDERS: Colon & Rectal Surgery; General Practice; Internal Medicine; Internal Medicine Infectious Disease; Internal Medicine Nephrology; ADMIT Surgery; ATTEND Surgery
PROC: BW21YZZ Computerized Tomography (CT Scan) of Abdomen and Pelvis using Other Contrast (ICD-10-PCS; 2024-12-29)
PROC: 0D9670Z Drainage of Stomach with Drainage Device, Via Natural or Artificial Opening (ICD-10-PCS; principal; 2024-12-30)
PROC: BW4GZZZ Ultrasonography of Pelvic Region (ICD-10-PCS; 2025-01-01)
PROC: B246ZZZ Ultrasonography of Right and Left Heart (ICD-10-PCS; 2025-01-02)
PROC: 06HM33Z Insertion of Infusion Device into Right Femoral Vein, Percutaneous Approach (ICD-10-PCS; 2025-01-02)
PROC: 4A12X4Z Monitoring of Cardiac Electrical Activity, External Approach (ICD-10-PCS; 2025-01-02)
PROC: 0T9B70Z Drainage of Bladder with Drainage Device, Via Natural or Artificial Opening (ICD-10-PCS; 2025-01-03)
PROC: 3E0F7GC Introduction of Other Therapeutic Substance into Respiratory Tract, Via Natural or Artificial Opening (ICD-10-PCS; 2025-01-04)
PROC: 30233R1 Transfusion of Nonautologous Platelets into Peripheral Vein, Percutaneous Approach (ICD-10-PCS; 2025-01-04)
PROC: 5A09457 Assistance with Respiratory Ventilation, 24-96 Consecutive Hours, Continuous Positive Airway Pressure (ICD-10-PCS; 2025-01-05)
PROC: 8E0ZXY6 Isolation (ICD-10-PCS; 2025-01-06)
DX: K43.3 Parastomal hernia with obstruction, without gangrene (principal); A41.89 Other specified sepsis; R65.21 Severe sepsis with septic shock; B37.7 Candidal sepsis; N17.9 Acute kidney failure, unspecified; E87.4 Mixed disorder of acid-base balance; B37.49 Other urogenital candidiasis; Q60.0 Renal agenesis, unilateral; C18.9 Malignant neoplasm of colon, unspecified; D69.6 Thrombocytopenia, unspecified; D64.9 Anemia, unspecified; E86.0 Dehydration; R33.8 Other retention of urine; E11.9 Type 2 diabetes mellitus without complications; I11.9 Hypertensive heart disease without heart failure; N18.9 Chronic kidney disease, unspecified; B96.1 Klebsiella pneumoniae [K. pneumoniae] as the cause of diseases classified elsewhere; Z93.3 Colostomy status; Z95.0 Presence of cardiac pacemaker; Z66 Do not resuscitate